=== PATIENT | male | born 1995 | race Caucasian/White ===

== ENCOUNTER 2016-09-25 14:28 | Emergency (ER) | payer BC, OTHER ==
[~2016-09-25] VITALS: Ht 177.8 cm; Wt 80.0 kg
[2016-09-25 14:32] VITALS: Ht 177.8 cm; Wt 80.0 kg
[2016-09-25] MEDS ORDERED: DIPHTH/TET/ACEL PERTUSS (ADULT) 0.5 ML VIAL IM* ONE (15:00)
[2016-09-25] MEDS ORDERED: LIDOCAINE 2% (MDV) 20 ML INJ INJ ONE (15:00)
[2016-09-25] MEDS ORDERED: LIDOCAINE 2%/EPI MPF (SDV) 20 ML VIAL INJ ONE (15:00)
[2016-09-25] MEDS ORDERED: HYDROCODONE/APAP (5/325) TAB PO STA ×2 (15:28→17:10)
[2016-09-25] MEDS ORDERED: morphine 10 MG INJ IM STA (15:31)
[2016-09-25] MEDS ORDERED: ONDANSETRON 4 MG INJ IM STA (15:31)
[2016-09-25] MEDS ORDERED: ONDANSETRON (ODT) 4 MG TAB ODT STA (15:38)
[2016-09-25] MEDS ORDERED: ONDANSETRON (ODT) 4 MG TAB ODT ONE (15:39)
[2016-09-25 15:57] VITALS: BP 130/90; PULSE 79; RESP 17
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
[2016-09-25] MEDS ORDERED: CEPHALEXIN 500 MG CAP PO STA (16:10)
[2016-09-25] MEDS ORDERED: HYDR-906 PO (17:40)
[2016-09-25] MEDS ORDERED: CEPH-443 PO (17:40)
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
== END 2016-09-25 18:07 | disposition home or self-care (01) ==
LOC: FTE 14:28
DX: S61.216A Laceration without foreign body of right little finger without damage to nail, initial encounter (principal); W25.XXXA Contact with sharp glass, initial encounter; Y92.9 Unspecified place or not applicable; Z23 Encounter for immunization; Z87.891 Personal history of nicotine dependence
CPT/HCPCS: 12002; 73130; 90471; 90715; 96372; 99284; J2270; J2405